=== PATIENT | female | born 1940 | race Caucasian/White ===

== ENCOUNTER 2016-11-17 14:47 | Emergency (ER) | payer MEDICARE ==
[2016-11-17 15:03] VITALS: BP 134/64; PULSE 84; RESP 20; TEMP 97.9; O2SAT 96
[2016-11-17] MEDS ORDERED: SODIUM CHLORIDE 0.9% FLUSH 10 ML FLUSH IV FLUSH PRN (15:15)
[2016-11-17] MEDS ORDERED: FAMOTIDINE 20 MG TAB PO ONE (15:15)
[2016-11-17] MEDS ORDERED: methylPREDNISolone SOD SUCC 125 MG/2 ML VIAL IV PUSH ONE (15:15)
[2016-11-17] MEDS ORDERED: diphenhydrAMINE HCL 25 MG CAP PO ONE (15:15)
--- NOTE | 2016-11-17 15:17 | PD ---
HPI Chief Complaint: Allergic/Adverse Reaction Time Seen by Provider: 15:14 Travel History International Travel<30 days: No Contact w/Intl Traveler<30days: No Traveled to known affect area: No History of Present Illness HPI Patient comes in complaining of allergic reaction that began approximately 2 hours after taking Macrobid. Patient states Macrobid prescribed for her UTI. Patient states she had same thing happened last time she was on Macrobid but then began after taking a 7 day course and she was staying at a hotel at that time and she thought that it may be something else that may have caused it. Patient states that she contacted her primary care doctor who recommended she take Benadryl, stop taking the Macrobid, and will call prescription for Cipro for her UTI. Patient states Benadryl seemed to help a clear up her hives, itching, and flushed feeling. Patient denies any shortness of breath this, nausea, vomiting, chest pain, headaches, numbness or tingling anywhere. Patient denies any other known new allergen exposures. Denies anything making it worse. PFSH Past Medical History Arthritis: No Autoimmune Disease: No Blood Disorders: No Heart Rhythm Problems: Yes (VENTRICULAR ARRYTHMIA) Cancer: Yes (RIGHT BREAST) Cardiovascular Problems: Yes High Cholesterol: No Chemotherapy: No Chest Pain: No Congestive Heart Failure: No Cerebrovascular Accident: No Endocrine: No Genitourinary: Yes Headaches: No Hypertension: Yes Kidney Stones: No Musculoskeletal: No Neurologic: No Psychiatric: No Respiratory: No Myocardial Infarction: No Radiation Therapy: No Renal Failure: No Seizures: No Past Surgical History Abdominal Surgery: No AICD: No Cardiac Surgery: Yes Ear Surgery: No Endocrine Surgery: No Eye Surgery: No Genitourinary Surgery: No Gynecologic Surgery: No Oral Surgery: No Pacemaker: No Thoracic Surgery: Yes Social History Alcohol Use: Yes (OCCASSIONAL WHEN YOUNGER, DRINKS SOCIALLY NOW) Tobacco Use: Yes ( 1/2 PASK PER DAY FOR 20-30 YEARS QUIT 5 YEARS AGO) Substance Use: No Allergies-Medications (Allergen,Severity, Reaction): Coded Allergies: Sulfa (Sulfonamide Antibiotics) (Verified Allergy, Severe, Rash, 11/17/16) nitrofurantoin (Verified Allergy, Severe, Rash, 11/17/16) penicillin G (Verified Allergy, Severe, Rash, 11/17/16) Reported Meds & Prescriptions Reported Meds & Active Scripts Active Pepcid (Famotidine) 20 Mg Tab 20 Mg PO BID 7 Days Prednisone 20 Mg Tab 20 Mg PO BID 3 Days Start on 11/18/16 after talking to your primary care provider secondary to being prescribed cipro for you UTI. Reported Spiriva Handihaler (Tiotropium Inh) 18 Mcg Cap 18 Mcg INH DAILY 1 capsule = 18 mcg Anastrozole 1 Mg Tab 1 Mg PO DAILY Norvasc (Amlodipine Besylate) 10 Mg Tab 10 Mg PO DAILY Review of Systems Except as stated in HPI: all other systems reviewed are Neg Physical Exam Narrative GENERAL: Well-developed, well nourished, in no acute distress, and non-ill appearing. SKIN: Focused skin assessment warm and dry. HEAD: Atraumatic. Normocephalic. EYES: Pupils equal and round. EOMI. No scleral icterus. No injection or drainage. ENT: No nasal bleeding or discharge. Mucous membranes pink and moist. NECK: Trachea midline. No stridor. Supple. No nuclear rigidity. CARDIOVASCULAR: Regular rate and rhythm. No murmur appreciated. RESPIRATORY: No accessory muscle use. No respiratory distress. Clear to auscultation. Breath sounds equal bilaterally. Speaking in full sentences without difficulty. MUSCULOSKELETAL: No obvious deformities. No clubbing. No cyanosis. No edema. Full range of motion. NEUROLOGICAL: Awake and alert. No obvious cranial nerve deficits. Motor grossly within normal limits. Normal speech. PSYCHIATRIC: Appropriate mood and affect; insight and judgment normal. Data Data Last Documented VS Vital Signs Date Time Temp Pulse Resp B/P (MAP) Pulse Ox O2 Delivery O2 Flow Rate FiO2 11/17/16 17:49 97.8 86 17 120/77 (91) 98 11/17/16 16:46 Room Air Orders Orders Ecg Monitoring (11/17/16 15:12) Iv Access Insert/Monitor (11/17/16 15:12) Oximetry (11/17/16 15:12) Methylprednisolone So Succ Inj (Solumedr (11/17/16 15:15) Sodium Chloride 0.9% Flush (Ns Flush) (11/17/16 15:15) Famotidine (Pepcid) (11/17/16 15:15) Diphenhydramine (Benadryl) (11/17/16 15:15) MDM Medical Decision Making Medical Screen Exam Complete: Yes Emergency Medical Condition: Yes Differential Diagnosis Allergic reaction, angioedema, respiratory distress, other Narrative Course Appears allergic reaction. There is no airway involvement nor difficulty swallowing. Patient looks great. The patient is tolerating fluids. The patient looks great, the findings are minimal and due to nonprogression of symptoms here the patient is safe to discharge home. The patient feels comfortable with plan and will return immediately if symptoms begin to worsen. The rash is not consistent with erythema muliforme at this time. The patient is to continue histamine 1 and 2 blockade as well as steroids. The patient was instructed to avoid potential precipitating factor and to follow up with their regular physician and or follow up with ancillary specialist for definitive allergy testing. The patient agrees with plan. Patient in no obvious distress upon re-evaluation. Discussed patient with Dr. Orellana prior to discharge who is in agreement with plan of care and disposition. Patient was asked if they wanted to speak to my attending, which the patient did not wish to do at this time. Any questions/concerns in reference to patient diagnosis/condition discussed and clarified prior to patient's discharge. Reinforced sheer importance of close follow up with patient 's primary physician or primary care clinic. Instructed patient to return to ED immediately, if symptoms return/worsen. Patient showed understanding of above instructions. Further instructions and recommendations were detailed in discharge paperwork. Patient ambulated without difficulty out of ED at discharge. Diagnosis Primary Impression: Allergic reaction Qualified Codes: T78.40XA - Allergy, unspecified, initial encounter Patient Instructions: General Allergic Reaction (ED), General Instructions Additional Instructions: Follow-up with your primary care physician next week for evaluation. Contact your primary care doctor tomorrow prior to taking additional steroids secondary to them prescribing Cipro as the combination can weaken your tendons causing them to snap.. Take all medication as prescribed. Use [id number] Claritin or Benadryl or Zyrtec as needed for symptomatic relief. Follow instructions on the packaging. Return to the emergency department if symptoms get worse. Med/Other Pt SpecificInfo: Prescription(s) given Scripts Famotidine (Pepcid) 20 Mg Tab 20 MG PO BID for 7 Days, #14 TAB 0 Refills Prov: Néstor Orellana MD 11/17/16 Prednisone (Prednisone) 20 Mg Tab 20 MG PO BID for 3 Days, #6 TAB 0 Refills Start on 11/18/16 after talking to your primary care provider secondary to being prescribed cipro for you UTI. Prov: Néstor Orellana MD 11/17/16 Disposition: 01 DISCHARGE HOME Condition: Jason Lobato Nov 17, 2016 15:17
[2016-11-17 15:25] VITALS: RESP 17; O2SAT 98
[2016-11-17] MEDS ORDERED: AMLO10 PO (15:30)
[2016-11-17] MEDS ORDERED: SPIRCAP INH (15:30)
[2016-11-17] MEDS ORDERED: ANAS1TAB PO (15:30)
[2016-11-17 16:46] VITALS: BP 130/66; PULSE 82; RESP 17; TEMP 97.8; O2SAT 97
[2016-11-17] MEDS ORDERED: FAMO1TAB37 PO (17:29)
[2016-11-17] MEDS ORDERED: PRED20 PO (17:29)
[2016-11-17 17:49] VITALS: BP 120/77; TEMP 97.8
== END 2016-11-17 17:50 | disposition home or self-care (01) ==
LOC: NEPE 14:47
DX: T78.40XA Allergy, unspecified, initial encounter (principal); I10 Essential (primary) hypertension; N39.0 Urinary tract infection, site not specified
CPT/HCPCS: 96374; 99284; J2930

== ENCOUNTER 2017-01-10 16:57 | Inpatient (IN) | payer MEDICARE ==
[2017-01-10] VITALS (10 sets, daily range): BP systolic 149–159; BP diastolic 76–77; PULSE 84–102; RESP 13–39; TEMP 97.5–98.3; O2SAT 92–97
[~2017-01-10] VITALS: Ht 162.6 cm; Wt 72.7 kg
[~2017-01-10 16:57] MED LIST: AMLO10 PO; ANAS1TAB PO; FAMO1TAB37 PO; PRED20 PO; SPIRCAP INH
[2017-01-10 17:48] LABS: BLOOD GAS BASE EXCESS -3.7 mmol/L (-2-2); BLOOD GAS CARBOXYHEMOGLOBIN 1.3 % (0-4); BLOOD GAS HCO3 20 mmol/L (22-26); BLOOD GAS METHEMOGLOBIN 0.8 % (0-2); BLOOD GAS O2 HGB SATURATION 88 % (90-100); BLOOD GAS OXYGEN CONTENT 18.3 Vol % (12.0-20.0); BLOOD GAS PCO2 32 mmHg (38-42); BLOOD GAS PO2 59 mmHg (61-120); BLOOD GAS TOTAL HGB 14.8 G/DL (12.0-16.0); CRITICAL VALUE YES; DRAW SITE RT RADIAL; FIO2 21 %; NUMBER OF ARTERIAL PUNCTURES 1; ULNAR PULSE PRESENT
[2017-01-10 17:49] LABS: STAT YES
[2017-01-10] MEDS ORDERED: diphenhydrAMINE HCL 25 MG CAP PO PRN (18:30)
[2017-01-10] MEDS ORDERED: SODIUM CHLORIDE FLUSH PRN IV FLUSH (18:30)
[2017-01-10 18:33] LABS: AUTOMATED NEUTROPHIL # 10.2 TH/MM3 (1.8-7.7); BASOPHIL % 0.4 % (0.0-2.0); EOSINOPHIL % 0.2 % (0.0-4.0); HEMATOCRIT 42.3 % (35.0-46.0); HEMO FLAGS DIFF FINAL; LYMPH % 11.6 % (9.0-44.0); LYMPHOCYTE # 1.4 TH/MM3 (1.0-4.8); MEAN CELL VOLUME 98.9 FL (80.0-100.0); MEAN CORPUSCULAR HEMOGLOBIN 33.5 PG (27.0-34.0); MEAN CORPUSCULAR HGB CONC 33.9 % (32.0-36.0); MONO % 2.2 % (0.0-8.0); NEUT % 85.6 % (16.0-70.0); PLATELET COUNT 356 TH/MM3 (150-450); RED BLOOD COUNT 4.28 MIL/MM3 (4.00-5.30); RED CELL DISTRIBUTION WIDTH 12.3 % (11.6-17.2); WHITE BLOOD COUNT 11.9 TH/MM3 (4.0-11.0)
[2017-01-10 19:07] LABS: CHLORIDE 101 MEQ/L (98-107); POTASSIUM 3.6 MEQ/L (3.5-5.1); SODIUM (NA) 134 MEQ/L (136-145)
[2017-01-10 19:11] LABS: ANION GAP 12 MEQ/L (5-15); BICARBONATE 20.7 MEQ/L (21.0-32.0); BLOOD UREA NITROGEN 14 MG/DL (7-18)
[2017-01-10 19:14] LABS: ALT (GPT) 44 U/L (10-53); AST (GOT) 23 U/L (15-37); GLOMERULAR FILTRATION RATE 73 ML/MIN (>89)
[2017-01-10 19:15] LABS: TOTAL BILIRUBIN ADULT 0.6 MG/DL (0.2-1.0)
[2017-01-10 19:17] LABS: ALKALINE PHOSPHATASE 101 U/L (45-117)
[2017-01-10] MEDS: RESP: IPRATROPIUM 0.5 MG/2.5 ML NEB NEB SCH (20:03)
[2017-01-10] MEDS: SODIUM CHLORIDE FLUSH BID IV FLUSH SCH (21:01)
--- NOTE | 2017-01-10 22:14 | HHI.PR ---
Addendum to Inpatient Note Addendum Reason: Additional Documentation Additional Information Admit H&P dictated. I'll be in the hospital early AM to see patient slb Obdulia Barr MD Jan 10, 2017 22:14
[2017-01-11] VITALS (11 sets, daily range): BP systolic 131–162; BP diastolic 66–76; PULSE 88–102; RESP 20–42; TEMP 96.5–98.9; O2SAT 91–97
[2017-01-11] MEDS ORDERED: methylPREDNISolone SOD SUCC 125 MG/2 ML VIAL IV ONE (00:30)
--- NOTE | 2017-01-11 06:27 | HHI.FPPN ---
Subjective Remarks Feels a bit better. She notes that she didn't really notice that she was short of breath any more than her normal. She states she has been so used to the SOB she just adjusts her activities (yet she wasn't as winded with activity at her appointment 6 months ago). We discussed that since her last visit she has had 2 UTIs (June where we put her on Macrobid and she did well and about a month ago when we tried the macrobid again but she got a rash and a tight feeling in her throat). She notes the tight feeling from the macrobid resolved within a day after stopping the macrobid and she didn't require any treatment. She hasn't had any fever. No chest pressure. She hasn't had any feeling of SVT like she did prior to the ablation in 1999 (in [place]). No n/v/d. No dizziness. Her smokes cigars occasionally in his office in the house but not in the areas where she is. She did have a pneumonia in the that resulted in prolonged ICU stay and tracheostomy placement but has been doing well since then. Prior tobacco use but quit in the . Denies abdominal pain or UTI symptoms at this time Objective Vitals Vital Signs Date Time Temp Pulse Resp B/P (MAP) Pulse Ox O2 Delivery O2 Flow Rate FiO2 01/11/17 04:00 94 21 01/11/17 03:29 98.9 94 28 162/75 (104) 94 01/11/17 00:00 98.1 88 20 160/76 (104) 94 01/10/17 23:00 84 13 93 01/10/17 20:54 94 25 149/76 (100) 01/10/17 20:03 97 Nasal Cannula 4.00 01/10/17 20:00 90 01/10/17 20:00 95 Nasal Cannula 2.00 01/10/17 19:42 97.5 92 24 159/77 (104) 95 01/10/17 19:00 100 39 01/10/17 18:00 92 26 96 01/10/17 17:45 102 01/10/17 17:42 82 Nasal Cannula 4.00 01/10/17 17:25 98.3 100 18 157/77 (103) 92 01/10/17 17:00 95 Nasal Cannula 2.00 Result Diagram: 01/10/17179901/10/17 1800 Imaging CTA done yesterday at [facility])--mild fibrosis and COPD changes without mass or pulmonary emboli (don't know if the fibrosis is new or old from her prior pneumonia as we haven't had a need for CT scanning and I have no comparison). spirometry in my office yesterday unchanged from 2015--moderate obstruction (no restrictive pattern). EKG unchanged from 2016 other than tachycardia Objective Remarks WDWF, calmer this AM, no distress but she does take some breaths in the middle of a sentence, no accessory muscle use. ON O2 at 2L, nurse reports O2 sat drop to 85% on 2L when she gets up to the bathroom, o/w in the low 90s at rest on O2 CV: mild tachy, no murmur Lungs: better air movement this AM, no longer wheezing, no rhonchi Abd: soft, protuberant, NT, Normal BS Chest wall--s/p bilateral mastectomy with scarring, no masses, generally tender , no axillary LN Ext: acrocyanosis to the feet is resolved. Cap refill yesterday at 5-6 seconds, now down to 2 seconds, bilateral LE varicosities unchanged, no edema, no calf tenderness Urinary Catheter: No Vascular Central Line Catheter: No A/P Problem List: (1) COPD with hypoxia ICD Codes: J44.9 - Chronic obstructive pulmonary disease, unspecified; R09.02 - Hypoxemia Status: Acute Plan: Chronic COPD, not sure when exacerbation occurred. Definite worsennig after CT contrast yesterday with wheezing and worsening hypoxia (O2 sat down to 77%). Some hyperventilation at that time. could be gradual progression of COPD yet spirometry unchanged over 2 years in office. could be macrobid induced toxicity to the lung. She doesn't appear ill/infectious. No other recent exposures. Check PFTs and walk test today, likely will need home O2 for a while until resolved and home with prednisone taper and conversion to inhaled steroids. She has been on spiriva snf with usual control. Not sure if changes are pulmonary or cardiac in nature, however she really doesn't have cardiac symptoms and doesn't feel like SVT she had in the past. Will have her see pulmonary for eval. (2) Contrast media adverse reaction ICD Codes: T50.8X5A - Adverse effect of diagnostic agents, initial encounter Plan: Steroid taper, better than post CTA yesterday (3) Hypertension ICD Codes: I10 - Essential (primary) hypertension Status: Chronic Plan: Usually controlled with her home meds. Likely elevated now with stress and steroids. Was 130/70s in the office yesterday (4) Tachycardia ICD Codes: R00.0 - Tachycardia, unspecified Status: Acute Plan: Not sure if this is primary causing SOB/hypoxia or if primary pulmonary causing tachycardia. Will monitor. Beta sima (toprol) in the past worsened SOB/breathing Problem Qualifiers (1) Contrast media adverse reaction: Qualified Codes: T50.8X5A - Adverse effect of diagnostic agents, initial encounter (2) Hypertension: Qualified Codes: I10 - Essential (primary) hypertension Obdulia Barr MD Jan 11, 2017 06:27
[2017-01-11] MEDS: RESP: IPRATROPIUM 0.5 MG/2.5 ML NEB NEB SCH ×4 (07:56→20:48)
[2017-01-11] MEDS: methylPREDNISolone SOD SUCC 125 MG/2 ML VIAL IV SCH ×2 (08:09→21:04)
[2017-01-11] MEDS: SODIUM CHLORIDE FLUSH BID IV FLUSH SCH ×2 (08:10→21:04)
[2017-01-11] MEDS: LOSARTAN 50 MG TAB PO SCH (08:10)
--- NOTE | 2017-01-11 08:14 | MH ---
cc: JOSÉ LUIS CASTRO MD DATE OF ADMISSION: 01/10/2017 DATE OF 1940 CHIEF COMPLAINT Shortness of breath, reaction to contrast dye HISTORY OF PRESENT ILLNESS Ms. Urbina is a 76-year-old white female who came into the office for her usual follow up of COPD when she was found by my office staff to have O2 sats in the low 80s and short of breath on just walking into the office. Upon walking her around the office, she did have O2 sats 87% with three laps around the office with a heart rate of 119 and pulse ox of 94 after rest. When she was found to have the hypoxia and the tachycardia with some increased shortness of breath, she was sent for a CTA to evaluate for pulmonary emboli given her past history of cancer and Anastrozole therapy. She did have contrast dye at [facility] and, immediately afterwards, had an increased feeling of anxiety, shortness of breath, shakiness and just overall did not feel well. She was given what I believe was Benadryl over at [facility] and was monitored over there for 45 minutes. Since she continued to feel worse, they sent her back over to the office. Upon arrival to the office, her O2 sat was 77% on room air with a heart rate of 125. She was able to sit and rest and her heart rate came down to 111 with an O2 sat varying between 87 and 90%. She had increased wheezing at that time. She was given Solu-Medrol 125 mg IM and given an Atrovent nebulizer at my office about 3:30 on 01/10/2017. PAST MEDICAL HISTORY 1. Hypertension, 2. COPD 3. History of urinary tract infections. She was on Macrobid in June 2016 and then had another dose of Macrobid a month ago. She took one pill and developed rash and almost passed out and has not been on any more Macrobid since that time. 4. Malignant breast cancer in 2014 PAST SURGICAL HISTORY 1. Tonsillectomy, 2. Both right and left knee replacements. 3. Tracheostomy after a severe pneumonia I believe in the 4. Mastectomy right in 1982, 5. Breast lumpectomy in 2014. Mastectomy left in 2014. Obviously she had breast cancer back in 1982 and the right breast, breast cancer left in 2014. SOCIAL HISTORY She is since 1967. She has two stepchildren. She is not currently employed. She has a college education. She has been a glass of wine nightly. She had smoked one pack per day for 30 years, quit in 1999. MEDICATIONS 1. Spiriva one inhalation daily 2. Losartan 100 mg daily 3. Amlodipine 10 mg daily 4. Anastrozole 1 mg daily, 5. Calcium carbonate 1300 mg daily, 6. Multivitamin daily, 7. Vitamin C 500 mg daily. ALLERGIES PENICILLIN SULFA PERCOCET (ALL CAUSED RASH) MACROBID RECENTLY FOUND TO HAVE RASH AND NEAR SYNCOPE HYDROCHLOROTHIAZIDE - HYPONATREMIA TOPROL - COUGH AND INCREASED SHORTNESS OF BREATH. CT CONTRAST DYE TODAY WITH WHEEZING AND HYPOXIA THAT WAS INCREASED HER BASELINE PRIOR TO THE TEST. Not 100% 100% sure that this is a contrast allergy versus increased anxiety after having the test. We will continue to evaluate. FAMILY HISTORY Dad at 59 with colon cancer, pancreatic cancer, COPD and ME. Mom at 75 with breast cancer with mets to the bone 10 years later, arthritis, hypertension and rheumatic fever. Sister at 58 with an intestinal infection with gangrene. She has another sister with dementia and heart disease currently declining and living and a sister living nearby. IMMUNIZATIONS Pneumovax 23 given in 1999 and again in 2007. she had HER Prevnar May 21, 2014. She had a shingles vaccine in 2007. Uncertain at this time if she had her flu vaccine this year. OTHER PHYSICIAN [facility] since her breast cancer. REVIEW OF SYSTEMS She has had slight increased shortness of breath. She felt coming into the office that it was maybe a little bit worse than her normal. She is becoming alone but more short of breath with her activities during the day, but it was not anything pronounced. She was unaware of having elevated heart rate. She has had no peripheral edema. No abdominal pain, no hematochezia or melena. No dysuria, no hematuria recently. She denies chest pressure or chest discomfort with any of this. She has not had any major changes in her weight. She has not noticed any changes in her legs, but she does have change in the coloration of her legs and her feet recently. No dizziness or falling. She has had increasing stressors with her sister with worsening dementia. PHYSICAL EXAMINATION VITAL SIGNS: Height 64 inches, weight 160.8 which is stable over time, blood pressure 130/60, pulse of 106, body mass index 28, O2 sat of 88% with respiratory rate of 20. Upon initial evaluation at the office, when she did walk prior to her scanning her O2 sats were 87% with a heart rate 119 just walking around in our halls. After the CTA, she had an O2 sat of 77% upon initially arriving with a heart rate of 125, increased respiratory rate up to 30. GENERAL: She is a well-developed white female in no acute distress. She is able to speak to me without too much distress, not jagged in her speaking. HEENT: Benign. Oropharynx shows no erythema and no swelling. She does not have any hoarseness. NECK: Supple without lymphadenopathy. No supraclavicular adenopathy. She has a scar from her previous tracheostomy that is very well-healed and minimally visible. CARDIOVASCULAR: Shows tachycardia, heart rates running 110-120s, 1/6 systolic ejection murmur. No irregularities LUNGS: Diffusely decreased breath sounds throughout. she does have wheezing noted in the apices bilaterally After the CT scan, was not present previously. ABDOMEN: Nontender. EXTREMITIES: Lower extremities showed no edema. She has varicosities to the bilateral lower extremities with some purple coloration changes over the varicosities on the left more than the right leg. She has a well palpable dorsalis pedis pulse on the right, non palpable pulse on the left. She does have decreased capillary refill to the bilateral toes at 5 seconds. No wounds. No calf tenderness. Negative Homans' sign. CTA done today at [facility] showed no evidence of pulmonary embolism. She has moderate emphysematous changes bilaterally. Scattered fibrotic scarring bilaterally, scattered low density lesions in the liver which are nonspecific. ASSESSMENT/PLAN 1. Increasing shortness of breath, hypoxia and tachycardia. EKG was generally unchanged from her baseline with maybe slight ST depression laterally, may be rate related. Given the potential reaction to the contrast dye, increasing hypoxia, I would like to monitor her overnight in the hospital watching her O2 sats and heart rate and reevaluate with a walk test on room air in the morning. We will try to get full pulmonary function tests on her. Her spirometry today was relatively stable compared to one just over a year ago with moderate obstructive changes. Other consideration would be Macrobid-induced pulmonary fibrosis. I do not see that I have a previous CT thorax on her to compare from a fibrotic standpoint. She did have a chest x-ray done in November of 2014 that showed no acute cardiopulmonary disease and there was really no mention of COPD on that exam either. I have already given her Solu-Medrol 125 mg in the office at 3:30. She had Benadryl at [facility] approximately 2:30 and she was given Atrovent nebulizer rather than albuterol due to the tachycardia. I will put her in the hospital and give her Solu-Medrol 60 mg IV x2 doses starting at 10:00 p.m. tonight, given q.12 h, O2 nasal cannula, titrate to keep greater than 90%, Atrovent nebulizers q.6 h and obtain full pulmonary function tests in the morning if possible. I am holding the Anastrozole at this time until we figure out her plan of care. I have continued her losartan, amlodipine but will hold if her blood pressures are low. They are not low at this point. She does have the steroids IV so I am not giving the nebulized steroids or inhaled steroids at this time. 2. Hypertension. She has been under good control. We will continue her current medications but adjust as needed. 3. History of breast cancer. No sign of lung masses or pulmonary emboli on exam today. She does have scattered low density lesions in the liver that are nonspecific. I have ordered labs to include liver function testing. May need to consider further evaluation once her pulmonary situation is under control. 4. Decreased capillary refill. We had ordered a CTA of the run off, but obviously will not do that due to her reaction today. We will consider ABIs in the future. No signs of acute blood vessel compromise at this moment. MD TRINH Chen/ /4:08 PM /8:07 AM
[2017-01-11] MEDS ORDERED: TIOTROPIUM BROMIDE 18 MCG INH INH SCH (09:00)
[2017-01-11 09:23] LABS: BLOOD, URINE NEG (NEG); GLUCOSE,URINE NEG (NEG); KETONE, URINE TRACE mg/dL (NEG); NITRITE,URINE NEG (NEG)
[2017-01-11 09:41] LABS: METHOD OF COLLECTION CLEAN CATCH; RBC, URINE 0-3 /hpf (0-3); SQUAMOUS EPITHELIAL CELL URINE 0-5 /hpf (0-5); URINE COLOR YELLOW (YELLW/STRAW)
[2017-01-11 09:42] LABS: COMMENT (UR) CULT NOT INDICATED; CULTURE IF INDICATED CULT NOT INDICATED
--- NOTE | 2017-01-11 15:02 | MB ---
cc: JOSÉ LUIS BARR R. STEVEN DATE OF CONSULTATION: 01/11/2017 HISTORY OF PRESENT ILLNESS Ms. Urbina is a 76-year-old white female, former smoker who quit about 2001 after a severe pneumococcal pneumonia resulting in respiratory failure, two-month hospitalization and a tracheostomy. She quit smoking at that point but did have COPD since that time and had basically been very stable on Spiriva at home. She came in to Dr. Barr's office yesterday for a routine follow-up, had been asymptomatic, really having no breathing complaints, but was noted to have a low O2 saturation. The heart rate was also elevated and the patient had minimal symptoms. She was sent for a CT scan as an outpatient from the office. I have not seen that report but Dr. Barr mentions in her note that there was no evidence of thromboembolism or pneumonia, just moderate emphysematous changes and some scattered fibrosis. The patient was referred back to our office. She remained hypoxic in the 80s with a tachycardia so she was admitted for further observation and evaluation. She received IV corticosteroids, aerosolized bronchodilators and was placed on oxygen. She says she feels much better today. She has never had an acute exacerbation of her disease. The last serious problem with her lungs with that pneumococcal pneumonia about 2001. She had no symptoms leading up to this that she was particularly concerned about. She is chronically dyspneic but has basically adjusted to it. She did have a spirometry today in the hospital and although she has fairly well-preserved FEV-1 she has very severe airways obstruction with an FEV-1 ratio of 35-40%. She has also not required oxygen prior to this. With a six-minute walk test on room air she did desaturate from the low 90s to about 87. No chest pain. No hemoptysis. No recent purulent sputum or unusual cough. The only cardiovascular history was some type of arrhythmia in the past that required an ablation. I suspect it was atrial fibrillation and that has not been a recent problem. PAST MEDICAL HISTORY 1. Tonsillectomy. 2. Bilateral knee replacements. 3. Tracheostomy after a very severe pneumonia about 15-20 years ago. 4. Bilateral mastectomies for breast cancer, last time was 2014. Apparently no evidence of recurrence at present. MEDICATIONS Medications are reviewed in the EMR. SOCIAL HISTORY , living with her . Drinks a glass of wine most evenings. Smoked for 30-40 pack-years but quit about 15 years ago. ALLERGIES 1. PENICILLIN. 2. SULFA. 3. PERCOCET. 4. MACROBID. 5. HCTZ. 6. TOPROL. FAMILY HISTORY Positive for cancer. Mother had breast cancer. A sister that she is responsible for now has dementia and is institutionalized. She says this has created a tremendous stress on her. REVIEW OF SYSTEMS As I said in my present illness she was surprised that her oxygen saturations were low. She is chronically dyspneic but really had not had any sudden change in dyspnea. No orthopnea or PND. No increasing lower extremity edema. No recent respiratory symptoms suggesting flu or infection. PHYSICAL EXAMINATION VITAL SIGNS: Afebrile. Blood pressure 130/60, pulse 90, respirations 18 and nonlabored at rest. O2 sat on room air at rest is 94. HEENT: Mucous membranes are moist. Sclera anicteric. NECK: Neck veins are flat. CHEST: Clear. No wheezes or rales. No congestion. HEART: Regular rhythm. No harsh murmur. ABDOMEN: Soft. EXTREMITIES: No peripheral edema. No calf tenderness. No cyanosis of the nail beds. ASSESSMENT AND PLAN Ms. Urbina does have significant obstructive lung disease based on a spirometry today but no obvious precipitating cause for an exacerbation. We really do not know how long she has been hypoxic but she showed up in the office yesterday with a low O2 sat and that has persisted even today. She does say that she feels much better. She may have had increased airways obstruction and just was not particularly symptomatic clinically. The CT scan is reassuring. She has had no evidence of thromboembolic disease. There is no pneumonia or evidence of heart failure. I would suggest observing her for another 24 hours since she has not required oxygen previously. Continue her bronchodilators. Consider switching her to a dual agent such as Anoro for better bronchodilation on discharge. Further diagnostic and/or therapeutic intervention will depend on her ongoing clinical course. RMD MARC Gillespie/NAINA /2:18 PM /2:38 PM
--- NOTE | 2017-01-11 17:11 | HHI.FF ---
Face to Face Verification Diagnosis: (1) COPD with hypoxia (2) Contrast media adverse reaction (3) Hypertension (4) Tachycardia Home Health Nursing Order: Medical education Signs/symptoms of disease process Oxygen administration education I have seen patient Arely Urbina on 01/11/17. My clinical findings support the need for the requested home health care services because: Patient has SOB I certify that my clinical findings support that this patient is homebound because: Hx COPD- exertion dyspnea/weakness Obdulia Barr MD Jan 11, 2017 17:10
[2017-01-11] MEDS ORDERED: COZA50TA PO (17:14)
[2017-01-11] MEDS ORDERED: OXYGENDME NAS.CANULA (17:14)
[2017-01-12] VITALS: BP 131/63; PULSE 92; RESP 20; TEMP 97.1; O2SAT 93
[2017-01-12 04:00] VITALS: BP 132/62; PULSE 100; RESP 20; TEMP 98.2; O2SAT 93
[2017-01-12] MEDS ORDERED: PRED20 PO (06:04)
--- NOTE | 2017-01-12 06:10 | HHI.DS ---
Discharge Summary Admission Date Jan 11, 2017 at 17:15 Discharge Date: Jan 12, 2017 Admitting Diagnosis (1) COPD with hypoxia Diagnosis: Principal Plan: Chronic COPD, not sure when exacerbation occurred. Definite worsennig after CT contrast with wheezing and worsening hypoxia (O2 sat down to 77%). Some hyperventilation at that time. could be gradual progression of COPD yet spirometry unchanged over 2 years in office. could be macrobid induced toxicity to the lung. She doesn't appear ill/infectious. No other recent exposures. Check PFTs and walk test today, likely will need home O2 for a while until resolved and home with prednisone taper and conversion to inhaled steroids. She has been on spiriva long-term with usual control. Not sure if changes are pulmonary or cardiac in nature, however she really doesn't have cardiac symptoms and doesn't feel like SVT she had in the past. Appreciate Dr. Peoples's input. She is doing MUCH better this AM, has been without O2 since mid afternoon yesterday, HR better. She even feels better than prior to coming to my office when she didn't realize she had trouble breathing. Will repeat walk test today. If she does well and does not need O2, will not need home health. F/u in my office next week for recheck. She will get a home O2 monitor. Will get her on an inhaled steroid in addition to the spiriva next week once she has tapered the oral steroid some. suspect now this was just a gradual exacerbation of her COPD that hit her unaware. ICD Codes: J44.9 - Chronic obstructive pulmonary disease, unspecified; R09.02 - Hypoxemia Status: Acute (2) Contrast media adverse reaction Plan: Steroid taper, better than post CTA yesterday ICD Codes: T50.8X5A - Adverse effect of diagnostic agents, initial encounter Status: Resolved (3) Hypertension Plan: Usually controlled with her home meds. Likely elevated now with stress and steroids. Much improved overnight and HR is much better although slighlty high in the 90s. ICD Codes: I10 - Essential (primary) hypertension Status: Chronic (4) Tachycardia Plan: resolved. Beta sima (toprol) in the past worsened SOB/breathing ICD Codes: R00.0 - Tachycardia, unspecified Status: Resolved (5) Claudication Diagnosis: Secondary Plan: will get JESSY outpatient, nothing acute. ICD Codes: I73.9 - Peripheral vascular disease, unspecified Status: Chronic CBC/BMP: 01/10/17 1800 01/10/17 1800 Significant Findings Laboratory Tests Test 01/10/17 17:33 01/10/17 18:00 01/11/17 09:10 Blood Gas HCO3 20 mmol/L (22-26) Blood Gas Base Excess -3.7 mmol/L (-2-2) Blood Gas Oxygen Saturation 88 % (90-100) Arterial Blood Partial Pressure CO2 32 mmHg (38-42) Arterial Blood Partial Pressure O2 59 mmHg (61-120) White Blood Count 11.9 TH/MM3 (4.0-11.0) Neutrophils (%) (Auto) 85.6 % (16.0-70.0) Neutrophils # (Auto) 10.2 TH/MM3 (1.8-7.7) Random Glucose 122 MG/DL (74-106) Sodium Level 134 MEQ/L (136-145) Carbon Dioxide Level 20.7 MEQ/L (21.0-32.0) Estimat Glomerular Filtration Rate 73 ML/MIN (>89) Urine Ketones TRACE mg/dL (NEG) PE at Discharge WDWF, calmer this AM, speaking fluidly without pause to breathe, no accessory muscle use. On RA without distress, O2 sats in the 90s overnight. CV: mild tachy, no murmur Lungs: better air movement this AM, no longer wheezing, no rhonchi Abd: soft, protuberant, NT, Normal BS Ext: acrocyanosis to the feet is resolved. Cap refill on admit at 5-6 seconds, now down to 2 seconds, bilateral LE varicosities unchanged, no edema, no calf tenderness, notes claudication when walking Pt Condition on Discharge: Good Discharge Disposition: Discharge Home Discharge Instructions DIET: Follow Instructions for: Heart Healthy Diet Activities you can perform: Regular-No Restrictions Obdulia Barr MD Jan 12, 2017 06:10
[2017-01-12] MEDS: RESP: IPRATROPIUM 0.5 MG/2.5 ML NEB NEB SCH (07:53)
[2017-01-12 07:57] VITALS: O2SAT 93
[2017-01-12 08:00] VITALS: BP 157/74; PULSE 102; RESP 16; TEMP 96.9; O2SAT 94
[2017-01-12] MEDS: SODIUM CHLORIDE FLUSH BID IV FLUSH SCH (08:30)
--- NOTE | 2017-01-12 08:36 | RSPPFT ---
DATE OF PROCEDURE: 01/11/17 COMMENTS: VOLUMES DYNAMIC: FVC normal; FEV1 mildly reduced. FLOWS: FEV1% and FEF 25-75 very severe reduced. IMPRESSION: There is very severe airways obstruction although the lung volume itself is only mildly reduced. Clinical correlation is required. No improvement post-bronchodilator.
[2017-01-12] MEDS ORDERED: predniSONE 20 MG TAB PO SCH (09:00)
[2017-01-12] MEDS: LOSARTAN 50 MG TAB PO SCH (09:33)
--- NOTE | 2017-01-12 10:08 | HHI.PR ---
Addendum to Inpatient Note Addendum Reason: Additional Documentation Additional Information patient did her walk test and did well. She no longer needs the O2. Will stop the home health and home O2 orders. bOdulia Hoskins MD Jan 12, 2017 10:08
--- NOTE | 2017-01-12 11:18 | MD ---
cc: JOSÉ LUIS BARR R. STEVEN M.D. ADMISSION DATE: 01/11/2017 DISCHARGE DATE: 01/12/2027 [place] Visit Search.Discharge Date SHORT PULMONARY DISCHARGE HISTORY Ms. Urbina is a 76-year-old white female who I saw yesterday for the first time with a history of COPD. She presented with a rapid heart rate, low oxygen saturation for observation, admitted by Dr. Barr. Over the course of 48 hours, she is back to her normal state. In fact she presented to the doctor's office for a routine visit and only because her O2 sat was low and her heart rate was high was the doctor concerned. She had a CT angiogram which revealed no evidence of thromboembolism, heart failure or pneumonia but she was admitted for observation. HOSPITAL COURSE She required oxygen for the first 24-36 hours but she did a walk test earlier today which was reported to be normal. She is back to her baseline. She says she feels fine. She had a spirometry which does reveal significant obstruction and I think she might benefit from a dual bronchodilator. I have suggested she discuss Anoro with Dr. Barr. She also has a slightly irregular heart rate this morning. She has apparently had an ablation in the past. I wonder if she had an atrial arrhythmia accounting for the rapid heart rate, dyspnea and low O2 sat on presentation. A cardiac catheterization technician may be of help in that regard. The patient is fine today. There is a plan to discharge her later today back to the care of Dr. Barr. I would be happy to see her as an outpatient if problems persist in the future. MD MARC Pizarro/PRATIBHA /10:59 AM /11:03 AM
--- NOTE | 2017-01-15 13:17 | PQ ---
Physician Query Response Document PATIENT: MENG MANTILLA : 1940 ADMIT DATE: 01/11/2017 5:15 PM DISCH DATE: 01/12/2017 11:11 AM RESPONDING PROVIDER #: SBuchana QUERY TEXT: COPD Specificity COPD - Chronic Obstructive Pulmonary Disease is documented in the Medical Record. Please specify the associated condition (includes suspected or probable) Such as: -- Bronchitis ? acute -- Asthmatic ? with /without status asthmaticus -- Exacerbation ? acute -- Lower respiratory infection - acute -- Other, please specify The patient's Clinical Indicators include: COPD W HYPOXIA DC HOME MEDS PREDNISONE AND OXYGEN AND SPIRIVA INH Query created by: Juli Edge on 01/12/2017 9:47 AM RESPONSE TEXT: COPD with acute exacerbation and pulmonary reaction to IV CT contrast dye. No current infection. SLb Electronically signed by: Obdulia Barr MD 01/15/2017 1:13 PM
== END 2017-01-12 11:11 | disposition home or self-care (01) | DRG 192 ==
LOC: PHICU 16:57 → PH3A 01-11 17:14 → OBSVTOIN 01-11 17:15
PROVIDERS: ADMIT Family Medicine; ATTEND Family Medicine
DX: J44.1 Chronic obstructive pulmonary disease with (acute) exacerbation (principal); T50.8X5A Adverse effect of diagnostic agents, initial encounter; R06.02 Shortness of breath; R09.02 Hypoxemia; Y92.531 Health care provider office as the place of occurrence of the external cause; I10 Essential (primary) hypertension; R00.0 Tachycardia, unspecified; I73.9 Peripheral vascular disease, unspecified; Z87.891 Personal history of nicotine dependence; Z85.3 Personal history of malignant neoplasm of breast; Z90.13 Acquired absence of bilateral breasts and nipples; Z96.653 Presence of artificial knee joint, bilateral
CPT/HCPCS: 36600; 80053; 81001; 82805; 85025; 94060; 94620; 94640; 94664; J2930; J7512; J7644

== ENCOUNTER → 2017-01-23 | Outpatient (CLI) | payer MEDICARE ==
[~2017-01-23] MED LIST changes: +COZA50TA PO
[2017-01-23 09:33] LABS: ANION GAP 8 MEQ/L (5-15); AST (GOT) 22 U/L (15-37); BICARBONATE 24.9 MEQ/L (21.0-32.0); BLOOD UREA NITROGEN 11 MG/DL (7-18); CHLORIDE 102 MEQ/L (98-107); GLOMERULAR FILTRATION RATE 61 ML/MIN (>89); GLUCOSE,FASTING 90 MG/DL (74-99); SODIUM (NA) 135 MEQ/L (136-145)
[2017-01-23 09:34] LABS: ALT (GPT) 41 U/L (10-53)
[2017-01-23 09:37] LABS: ALKALINE PHOSPHATASE 83 U/L (45-117); HDL CHOLESTEROL 69.7 MG/DL (40.0-60.0); LDL CHOLESTEROL 113 MG/DL (0-99); TOTAL BILIRUBIN ADULT 0.5 MG/DL (0.2-1.0)
== END ==
LOC: PLAB 07:25
PROVIDERS: ATTEND Family Medicine
DX: R00.0 Tachycardia, unspecified (principal); I10 Essential (primary) hypertension; R09.02 Hypoxemia; R09.89 Other specified symptoms and signs involving the circulatory and respiratory systems
CPT/HCPCS: 36415; 80053; 80061

== ENCOUNTER 2017-03-20 06:22 | Day surgery (SDC) | payer MEDICARE ==
[~2017-03-20] VITALS: Ht 162.6 cm; Wt 73.6 kg
[2017-03-20] MEDS ORDERED: IOHEXOL 350 MG/ML 100 ML BTL (for Cath Lab) OTHER ONE (06:23)
[2017-03-20] MEDS ORDERED: NS 1000P @30 MLS/HR (KVO) IV SCH (06:45)
[2017-03-20 07:13] VITALS: BP 154/75; PULSE 83; RESP 18; TEMP 97.9; O2SAT 96
[2017-03-20] MEDS ORDERED: methylPREDNISolone SOD SUCC 125 MG/2 ML VIAL IV ONE (07:15)
[2017-03-20] MEDS ORDERED: diphenhydrAMINE HCL 50 MG/ML VIAL IV ONE (07:15)
[2017-03-20] MEDS ORDERED: FAMOTIDINE 20 MG/2 ML VIAL IV ONE (07:15)
[2017-03-20 07:26] LABS: AUTOMATED NEUTROPHIL # 4.1 TH/MM3 (1.8-7.7); BASOPHIL % 0.5 % (0.0-2.0); EOSINOPHIL # 0.1 TH/MM3 (0-0.4); EOSINOPHIL % 1.8 % (0.0-4.0); HEMATOCRIT 40.5 % (35.0-46.0); HEMOGLOBIN 14.1 GM/DL (11.6-15.3); LYMPH % 23.7 % (9.0-44.0); LYMPHOCYTE # 1.5 TH/MM3 (1.0-4.8); MEAN CELL VOLUME 98.9 FL (80.0-100.0); MEAN CORPUSCULAR HEMOGLOBIN 34.3 PG (27.0-34.0); MEAN CORPUSCULAR HGB CONC 34.7 % (32.0-36.0); MEAN PLATELET VOLUME 6.5 FL (7.0-11.0); MONO % 10.9 % (0.0-8.0); MONOCYTE # 0.7 TH/MM3 (0-0.9); NEUT % 63.1 % (16.0-70.0); PLATELET COUNT 365 TH/MM3 (150-450); RED BLOOD COUNT 4.09 MIL/MM3 (4.00-5.30); RED CELL DISTRIBUTION WIDTH 12.9 % (11.6-17.2); WHITE BLOOD COUNT 6.5 TH/MM3 (4.0-11.0)
[2017-03-20] MEDS ORDERED: MULTTAB67 PO (07:28)
[2017-03-20] MEDS ORDERED: ATOR10TA15 PO (07:28)
[2017-03-20] MEDS ORDERED: UMEC1AER INH (07:28)
[2017-03-20] MEDS ORDERED: CALC12502 PO (07:28)
[2017-03-20 07:38] LABS: PROTHROMBIN TIME - PATIENT 9.9 SEC (9.8-11.6)
[2017-03-20 07:54] LABS: BICARBONATE 25.1 MEQ/L (21.0-32.0); CALCIUM 9.5 MG/DL (8.5-10.1); CREATININE 0.88 MG/DL (0.50-1.00)
[2017-03-20] MEDS ORDERED: HEPARIN-NS/PF FLUSH BAG 1,000 ML IV FLUSH ONE (08:53)
[2017-03-20] MEDS ORDERED: HEPARIN SODIUM - IV 10,000 UNITS/10 ML VIAL ONE (08:54)
[2017-03-20] MEDS ORDERED: MIDAZOLAM HCL 2 MG/2 ML VIAL ONE (08:54)
[2017-03-20] MEDS ORDERED: VERAPAMIL HCL 5 MG/2 ML VIAL ONE (08:54)
[2017-03-20] MEDS ORDERED: NITROGLYCERIN INJ 5 ML ONE (08:54)
--- NOTE | 2017-03-20 09:49 | CATHPROC ---
[facility] HIS Report Study Information Study Number Admission Scheduled Start Study Start [id number] Mar 20 2017 6:22AM 03/20/2017 Mar 20 2017 8:40AM [place] Service Cardiac Catheterization Admit Source Facility Department Other [facility] Physician and Clinical Staff Initial Stephen Smith Interior Design Teacher Katie Olivarez RN Recorder Sangeeta Ramirez,RT(R) (BS) Scrub Michelle Gaston RCIS TECH2 Procedures Performed Procedure Location (Site) Vessel Name Coronary Angiograms LCA Left Coronary Coronary Angiograms RCA Right Coronary L Heart Cath Wire insertion Radial (right) Radial Art. Equipment Time Bottling Equipment Sales Representative Description Size Mfg Part Number Used/Scraped TRANSDUCER, TRUWAVE [id number] 09:14 AMBROSIO FLYNN * Used W/KynetxCK *[id number] *[id number] 09:14 Nolio PACK, CCL CUSTOM * Used *[id number] 09:14 Nolio SUPPORT, ARTERIAL ADULT [id number] *[id number] Used [id number] 09:19 MEDTRONIC JL 3.5 DXTERITY CATHETER FR 5 Used *[id number] 09:15 MEDTRONIC JR 4.0 DXTERITY CATHETER FR 5 Used *[id number] BAND, RADIAL COMPRESSION TR [id number] 09:38 [employer]IT [employer] 29CM Used LARGE 29 *[id number] 09:24 [employer] PACK, ANGIOPLASTY * [id number] Used [id number] 09:14 [employer] MEDICAL WIRE, EXCHANGE 260CM 3MMJ 260CM Used *[id number] 09:14 NAMIC MANIFOLD, 4 PORT * Used *[id number] 09:14 NYCOMED OMNIPAQUE, 350 MG, 150ML 150ML [id number] Used [id number] 09:14 BRYAN [employer] BLANKET,WARM AIR CCL * Used *[id number] SHEATH, FR6 TRANSRADIAL [id number] 09:14 TERHealthline NetworksO MEDICAL FR 6 Used SLENDER 10CM *[id number] 09:25 [employer]OL[employer]O PRIME WIRE, VERRATA 185CM 185CM [id number] *[id number] Used Equipment Model, Serial, Lot Number and Expiration Data Description Model Number Serial Number Lot Number Expiration Date JR 4.0 DXTERITY CATHETER [id number] 11-18-2019 PACK, ANGIOPLASTY [id number] 11-13-2019 PRIME WIRE, VERRATA 185CM [id number] 01-13-2020 History: Current Medications Medication Dosage/Unit Route Frequency Last Date/Time Taken Statins (any) NORVASC History: Allergies Allergy Reaction Penicillin Rash Sulfa Rash Sulfa (Sulfonamide Antibiotics) Rash penicillin G Rash nitrofurantoin Rash Iodinated Contrast- Oral and IV Wheezing and hypoxia Dye oxycodone Rash acetaminophen Rash toprol Cough Hctz hyponatremia History: Risk Factors Family History of Hypertension Dyslipidemia Previous [place] Previous Heart Failure Premature CAD Yes Yes No No No Prior Valve Prior PCI Prior CABG Surgery No No No Cerebrovascular Peripheral Artery Chronic Lung On Dialysis Diabetes Disease Disease Disease No No No Yes No History: Symptoms/Diagnosis Selection Items SOB History: Stress Tests Stress or Imaging Studies Performed Yes Standard Exercise Stress Test No Stress Echo No Stress Test SPECT Stress Test SPECT Result Stress Test SPECT Ischemia Risk/Extent Yes Positive Intermediate Stress Test CMR No Cardiac CTA Coronary Calcium Score No No History: Other Current Smoker No Labs Hgb (g/dl) Hct (%) WBC (l/cumm) Platelets (thousands) 11.60-17.00 35.00-51.00 4.00-11.00 150.00-450.00 14.1 40.5 6.5 365 Glucose (mg/dl) BUN (mg/dl) Creatinine (mg/dl) BUN:Creatinine (1:x) 74.00-106.00 7.00-18.00 0.50-1.30 10.00-20.00 99 16 0.8 20 Na (meq/l) K (meq/l) 136.00-145.00 3.50-5.10 136 4.1 INR (PTT:PT) 0.90-1.10 1 CPK-MB (ng/ML) 0.50-3.60 Not Drawn Medication Medication Total Dose (Bolus/Oral) Medication Total Dosage/Unit 1% XYLOCAINE 1 mL FENTANYL 25 mcg HEPARIN 4400 units PEPCID 20 mg RADIAL COCKTAIL 1 units VERSED 0.5 mg Medications (Bolus/Oral) Medication Time Given Dosage/Unit Administered By Reason PEPCID 03/20/2017 8:52:18 AM 20 mg Katie Olivarez 20 mg PEPCID given in lab by Katie Olivarez, RN in Right Antecubital via Peripheral IV. 1% XYLOCAINE 03/20/2017 9:11:15 AM 1 mL Stephen Benitez 1 mL 1% XYLOCAINE given in lab by Stephen Benitez in Right Radial via Subcutaneous. VERSED 03/20/2017 9:11:28 AM 0.5 mg Katie Olivarez 0.5 mg VERSED given in lab by Katie Olivarez RN in Right Antecubital via Peripheral IV. FENTANYL 03/20/2017 9:12:35 AM 25 mcg Katie Olivarez 25 mcg FENTANYL given in lab by Katie Olivarez RN in Right Antecubital via Peripheral IV. Ntg 200mcg Verapamil 2.5mg Heparin RADIAL COCKTAIL 03/20/2017 9:14:08 AM 1 units Katie Olivarez 2000U 1 units RADIAL COCKTAIL given in lab by Katie Olivarez RN via Radial. Reason: Ntg 200mcg Verapamil 2.5mg Heparin 3000U. HEPARIN 03/20/2017 9:26:56 AM 4400 units Katie Olivarez 4400 units HEPARIN given in lab by Katie Olivarez RN in Right Antecubital via Peripheral IV. Medication (Drip) Medication Time Given Dosage/Unit Concentration/Unit Diluent (ml) Solution IV Solutions 03/20/2017 8:40:54 AM 0 mL (IV) 500 NaCl .9 IV Solutions given in lab by Katie Olivarez RN in Right Antecubital via Peripheral IV. Pump/Drip Fl ow = 30 ml/hr using NaCl .9. Initial Case Assessment Cardiovascular HR Rhythm NIBP Chest Pain 88 reg 150/67 0 Edema Present Skin color Skin None Normal Warm Dry Circulatory - Right Pulses Dorsalis Pedis Femoral 2 2 Scale (0,1,2,3,4,d) Circulatory - Left Pulses Dorsalis Pedis Femoral 1 1 Scale (0,1,2,3,4,d) Circulatory - Lower Extremities Color Lower Right Color Lower Left Normal Normal Neurological State Oriented to time-place- Alert Moves all extremities person Respiration - General Respiration Rate SpO2 (%) (B/min) 13 95 Chronological Log Time Study Chronological Log 8:38:31 Patient arrived via Bed. 8:38:36 Patient Name, D.O.B, / Armband Verified By R.N. 8:40:41 Consent signed by the physician and the patient and verified by the [facility] staff. 8:40:42 Pre-op and post- op instructions given; patient acknowledges understanding of instructions. 8:40:43 Verbal Stimulation=2 Physical Stimulation=2 Airway=2 Respiration=2 TOTAL=8. (0=absent, 1=li mited, 2=present) 8:40:44 Presedation assessment performed by [facility] RN. 8:40:46 Allens test performed on the right radial and ulnar artery. 8:40:48 Patient has been NPO for More than 6Hrs. 8:40:49 Skin Breakdown none per pt 8:40:49 Patient Warmer Placed on the Table. 8:40:53 Randy Prominences Protected IV Solutions given in lab by Katie Olivarez, RN in Right Antecubital via Peripheral IV. Pump/D rip Flow = 30 ml/hr 8:40:54 using NaCl .9. 8:40:57 History and physical on the chart or being dictated. Assessment: Initial Case, HR=88 BPM, Rhythm=reg, IFVJ=621/67 mmhg, Chest Pain=0, Edema=None, Col or=Normal, Skin = Warm, Dry Right Pulses: Niall Ped=2, Femoral=2 Left Pulses: Niall Ped=1, Femoral=1 8:40:58 Lower Right Extremities: Color=Normal Lower Left Extremities: Color=Normal Neurological: State=Alert, Ox3, MERIDA Respiration: Resp=13 B/min, SpO2=95 % Vitals capture started with the following parameters, Patient=Adult, Interval=5 min, Initial Pre qrciw=398 mmHg, 8:46:41 Deflation Rate=5 mmHg, Cuff placed on Right Ankle 8:47:21 HR=91 bpm, GCLR=170/67 mmhg, SpO2=96.0 %, Resp=5 B/min, Pain=0, Sandee=10, Pritchett=2 8:52:18 20 mg PEPCID given in lab by Katie Olviarez, RN in Right Antecubital via Peripheral IV. 8:52:22 HR=93 bpm, TWQB=795/70 mmhg, SpO2=97.0 %, Resp=11 B/min, Pain=0, Sandee=10, Pritchett=2 8:57:21 HR=87 bpm, XOFY=948/69 mmhg, SpO2=96.0 %, Resp=8 B/min, Pain=0, Sandee=10, Pritchett=2 8:57:35 A # 20 IV was noted in the Antecubital (right). Grade = 0 9:02:16 Right Radial and groin(s) prepped with 2% chlorhexidine, and draped after a 3 min. waiting t hieu. 9:02:20 HR=91 bpm, PHOB=480/69 mmhg, SpO2=95.0 %, Resp=12 B/min, Pain=0, Sandee=10, Pritchett=2 9:05:02 Reference ECG taken 9:07:21 HR=93 bpm, SSSQ=139/73 mmhg, SpO2=94.0 %, Resp=11 B/min, Pain=0, Sandee=10, Pritchett=2 Time Out. Correct patient, correct procedure, correct physician, power injector not loaded with contrast with surgical 9:10:20 team present. Time Out Concurred by MD and individual staff in procedure. 9:10:27 Case Start 9:11:15 1 mL 1% XYLOCAINE given in lab by Stephen Benitez in Right Radial via Subcutaneous. 9:11:28 0.5 mg VERSED given in lab by Katie Olivarez RN in Right Antecubital via Peripheral IV. 9:12:22 HR=90 bpm, QHKH=946/64 mmhg, SpO2=95.0 %, Resp=12 B/min, Pain=0, Sandee=10, Pritchett=2 9:12:35 25 mcg FENTANYL given in lab by Katie Olivarez, ABDULKADIR in Right Antecubital via Peripheral IV. 9:13:00 Pressure channel 1 zeroed. 9:13:10 Access site was right Radial Artery. A SHEATH, FR6 TRANSRADIAL SLENDER 10CM FR 6 was advanced into the Radial (right) using the Kimberlyu cj 9:13:24 technique. 1 units RADIAL COCKTAIL given in lab by Katie Olivarez, ABDULKADIR via Radial. Reason: Ntg 200mcg Verap gabby 2.5mg 9:14:08 Heparin 3000U. A JR 4.0 DXTERITY CATHETER FR 5 was advanced over a wire. OMNIPAQUE, 350 MG, 150ML 150ML was use d for 9:15:11 injections. Recorded Pressure: LV, HR=97, Condition=Condition 1 9:16:20 (Left Ventricle) LV 116/-1/4 Recorded Pressure: LV, Ao, HR=95, Condition=Condition 1 9:16:35 (Left Ventricle) LV 122/-1/3, (Aorta) Ao 118/53/79 Recorded Pressure: Ao, II=774, Condition=Condition 1 9:17:12 (Aorta) Ao 111/55/80 9:17:19 HR=96 bpm, VEDX=763/49 mmhg, SpO2=91.0 %, Resp=12 B/min, Pain=0, Sandee=10, Pritchett=2 9:17:41 The RCA was injected and visualized at various angles. OMNIPAQUE, 350 MG, 150ML 150ML used. After removing the current catheter a JL 3.5 DXTERITY CATHETER FR 5 was advanced over a WIRE, EX CHANGE 260CM 9:19:06 3MMJ 260CM. 9:22:21 HR=90 bpm, AYVU=750/47 mmhg, SpO2=94.0 %, Resp=9 B/min, Pain=0, Sandee=10, Pritchett=2 9:23:11 The LCA was injected and visualized at various angles. OMNIPAQUE, 350 MG, 150ML 150ML used. After removing the current catheter a JR 4.0 GUIDE CATHETER FR 6 was advanced over a WIRE, EXCHA NGE 260CM 9:24:52 3MMJ 260CM. 9:26:56 4400 units HEPARIN given in lab by Katie Olivarez, RN in Right Antecubital via Peripheral I V. 9:27:20 HR=91 bpm, CMPK=086/54 mmhg, SpO2=89.0 %, Resp=10 B/min, Pain=0, Sandee=10, Pritchett=2 9:29:50 A PRIME WIRE, VERRATA 185CM 185CM was inserted via Radial (right). 9:31:12 Flow Wire was was placed in the RCA Prox. The IFR measures 0.98 Percent. 9:32:23 HR=87 bpm, ACRX=549/57 mmhg, SpO2=88.0 %, Resp=16 B/min, Pain=0, Sandee=10, Pritchett=2 9:34:01 Wire removed 9:34:10 A WIRE, EXCHANGE 260CM 3MMJ 260CM was inserted via Radial (right). 9:34:33 Catheter was removed 9:34:59 Wire removed Radial Compression Device Used. 11 mLs of air placed in BAND, RADIAL COMPRESSION TR LARGE 29 2 9CM. Affected 9:37:21 hand 93 % O2 saturation. 9:37:24 HR=89 bpm, KTMR=301/61 mmhg, SpO2=89.0 %, Resp=19 B/min, Pain=0, Sandee=10, Pritchett=2 9:37:43 Case End 9:37:47 Catheter(s) removed without difficulty 9:37:54 No case complications noted. 9:37:59 Bedside Report will be given. 9:38:05 A Left Heart Cath was performed. 9:40:13 DOCU called. Spoke to Radha. 9:42:25 HR=86 bpm, DDOR=280/66 mmhg, SpO2=95.0 %, Resp=10 B/min, Pain=0, Sandee=10, Pritchett=2 9:43:42 Vitals capture stopped. 9:45:36 Patient moved to [facility] End Study - Contrast Media Used In Study Contrast Total Opened (mL) Total Used (mL) Total Wasted (mL) Omnipaque 90 90 0 End Study - Maximum Contrast Load Max Contrast Load (mL) 459.9 End Study - Radiation Exposure Fluoro Time (minutes) 5.0 End Study - Sheaths Sheaths Pulled By Sheath Hold Time (min) Stephen Benitez End Study - Patient Disposition Complications Transferred To Interventional Outcome No [facility] Holding No attempt made
[2017-03-20] MEDS ORDERED: MISC INFORMATION XX ONE (10:00)
--- NOTE | 2017-03-20 10:26 | MA ---
cc: STEPHEN IBARRA DO DATE: March 20, 2017 PROCEDURE Left heart catheterization, coronary angiogram, IFR RCA, moderate sedation 27 minutes. PREPROCEDURE DIAGNOSIS Possible history of VT, abnormal stress test. POSTPROCEDURE DIAGNOSIS Mild coronary artery disease. MEDICATIONS 1. Pepcid 20 mg. 2. Versed 0.5 mg. 3. Fentanyl 25 mcg. 4. Verapamil 2.5 mg. 5. Nitro 200 mcg. 6. Heparin 7400 units. CONTRAST 90 ccs. FLUOROSCOPY 5 minutes. SEDATION Moderate sedation 27 minutes. ESTIMATED BLOOD LOSS 10 ccs. PROCEDURAL SUMMARY Arely Urbina is a pleasant 77-year-old female who sees my partner Dr. Shaffer in the office and had a questionable history of ventricular tachycardia that was never worked up in the past, other than her ablation. She underwent stress testing which showed inferior ischemia and because of this she was recommended cardiac catheterization. Risks, benefits and alternatives were explained to her and she consented as such. She was brought to the lab and prepped in the usual sterile fashion. Right radial artery was accessed using a modified Seldinger technique and placement of a 5/6 [place] slender sheath. This was easily aspirated and flushed. A JR-4 was advanced over a J-wire to the ascending aorta and across the aortic valve for measurement of left ventricular pressure. This was pulled back across the aortic valve showing no significant gradient of aortic stenosis. JR-4 was used for selective angiography of the right coronary artery system. This was exchanged out for a JL-3.5 which was used for selective angiography of the left coronary artery system. JL-3.5 was removed. Due to the question of multiple lesions of mild to moderate significance throughout the RCA, I felt that this needed to be further investigated as she did have inferior ischemia on stress testing. A JR-4 guide was then engaged in the right coronary artery. Heparin was given as an anticoagulant. ___ wire was then advanced into the distal RCA. IFR was measured at 0.98 showing nonsignificant stenosis. Wire was removed. Final angiogram shows no disruption of the coronary anatomy. Guide was removed and radial band was placed over the arteriotomy site for hemostasis. 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 FINDINGS Left main is normal-size vessel with adequate reflux and no significant disease. It bifurcates into an LAD and circumflex. LAD is normal-size vessel with mild tortuosity throughout. Midportion has diffuse 30% disease but otherwise no significant disease. It has one major diagonal with 10% disease. Left circumflex is normal-size vessel with mild luminal irregularities throughout. It provides three to four obtuse marginals with no significant disease. RCA is normal-size vessel with mild to moderate disease throughout the midportion of 30-40%. Distally it is a dominant vessel and supplies a PDA with no significant disease. LVEDP 3. IMPRESSION 1. History of possible ventricular tachycardia status post ablation. 2. Abnormal stress test with mild coronary artery disease. RECOMMENDATIONS 1. Ms. Urbina underwent cardiac catheterization and only showed mild coronary artery disease. She will be recommended continued medical therapy. 2. She will follow up with Dr. Shaffer as previously scheduled. Thank you for allowing me to see Arely Urbina. If there are any questions, please do not hesitate to call. Stephen Ibarra DO VGP/TLL /9:51 AM /10:02 AM
--- NOTE | 2017-03-20 22:01 | EKG ---
Date Performed: 03/20/2017 Time Performed: 06:51:00 PTAGE: 77 years EKG: Sinus rhythm . Poor R wave progression - probable normal variant Borderline ECG PREVIOUS TRACING : 07/17/2004 15.48 DOCTOR: Thanh Erickson Interpretating Date/Time 03/20/2017 21:58:02
== END 2017-03-20 13:29 | disposition home or self-care (01) ==
LOC: HDIC 06:22 → HDOC 06:22
PROVIDERS: ATTEND Nuclear Medicine Nuclear Cardiology
DX: R94.39 Abnormal result of other cardiovascular function study (principal); I25.10 Atherosclerotic heart disease of native coronary artery without angina pectoris; R94.31 Abnormal electrocardiogram [ECG] [EKG]
CPT/HCPCS: 80048; 85025; 85610; 85730; 93005; 93458; 93571; 99152; 99153; C1769; C1887; C1893; J1200; J1644; J2250; J2930; J3010; Q9967

== ENCOUNTER → 2017-04-24 | Outpatient (CLI) | payer MEDICARE ==
[~2017-04-24] MED LIST changes: +ATOR10TA15 PO; +CALC12502 PO; -FAMO1TAB37 PO; +MULTTAB67 PO; -PRED20 PO; +UMEC1AER INH
--- NOTE | 2017-05-02 09:15 | RSPPFT ---
DATE OF PROCEDURE: 04/24/17 COMMENTS: VOLUMES DYNAMIC: FVC normal; FEV1 mildly reduced. STATIC: FRC, RV and TLC normal. FLOWS: FEV1% and FEF 25-75 severely reduced. DIFFUSION: Severely reduced. FLOW VOLUME LOOP: Pattern of variable intrathoracic airways obstruction. IMPRESSION: Moderate to severe obstructive ventilatory defect with no significant hyperinflation. There is a moderate to severe reduction in diffusion and no improvement post-bronchodilator.
== END ==
LOC: PHRSP 07:27
PROVIDERS: ATTEND Internal Medicine
DX: J44.9 Chronic obstructive pulmonary disease, unspecified (principal)
CPT/HCPCS: 94060; 94618; 94726; 94729

== ENCOUNTER → 2017-06-06 | Outpatient (CLI) | payer MEDICARE | LOC: HRSP 10:06 | PROVIDERS: ATTEND Internal Medicine | DX: J44.9 Chronic obstructive pulmonary disease, unspecified (principal) | CPT/HCPCS: 94618 ==